=== PATIENT | female | born 2005 | race Two or more races ===

== ENCOUNTER 2024-01-11 08:22 | Emergency (ER) | payer OTHER ==
[~2024-01-11] VITALS: Ht 157.5 cm; Wt 72.7 kg
[2024-01-11 08:25] VITALS: TEMP 98.5
[2024-01-11 08:58] LABS: COVID AG,FIA SOURCE NASAL SWAB
[2024-01-11 09:17] LABS: SARS-COV2 (COVID) ANTIGEN,FIA Negative (Negative)
[2024-01-11 09:18] LABS: INFLUENZA TYPE A NEGATIVE FOR TYPE A (NEGATIVE); INFLUENZA TYPE B NEGATIVE FOR TYPE B (NEGATIVE)
[2024-01-11] MEDS: OXYMETAZOLINE HCL 0.05% 15 ML NASAL SPRAY NASAL ONE (12:59)
[2024-01-11 13:11] VITALS: BP 126/67; PULSE 90; RESP 18
== END 2024-01-11 13:47 | disposition home or self-care (01) ==
LOC: EMS 08:22
DX: J06.9 Acute upper respiratory infection, unspecified (principal); J40 Bronchitis, not specified as acute or chronic; Z20.822 Contact with and (suspected) exposure to COVID-19
CPT/HCPCS: 71045; 87804; 99284

== ENCOUNTER 2024-07-31 12:53 | Emergency (ER) | payer OTHER ==
[~2024-07-31] VITALS: Ht 162.6 cm; Wt 77.3 kg
[2024-07-31 13:01] VITALS: TEMP 98.9
[2024-07-31] MEDS ORDERED: CYCL10TA16 PO (13:01)
[2024-07-31] MEDS ORDERED: DULO20CA71 PO (13:01)
[2024-07-31] MEDS ORDERED: HYDR-4527 PO (13:01)
[2024-07-31 14:24] VITALS: BP 119/78; PULSE 86; RESP 18; O2SAT 99
[2024-07-31 14:59] LABS: BASOPHILS % (AUTO) 0.4 % (0.0-2.0); EOSINOPHILS % (AUTO) 2.3 % (1.0-6.0); HEMATOCRIT 40.8 % (36-46); HEMOGLOBIN 13.8 g/dL (12.0-16.0); LYMPHOCYTES # (AUTO) 2.3 K/uL (1.0-4.8); LYMPHOCYTES % (AUTO) 21.2 % (22.0-44.0); MEAN CORPUSCULAR HEMOGLOBIN 29.8 pg (26.0-34.0); MEAN CORPUSCULAR VOLUME 88 fL (80-100); MONOCYTES # (AUTO) 0.4 K/uL (0.1-1.0); MONOCYTES % (AUTO) 4.1 % (2.0-9.0); NEUTROPHILS # (AUTO) 7.8 K/uL (1.8-7.7); PLATELET COUNT (AUTO) 282 K/uL (150-450); RED BLOOD CELL COUNT(AUTO) 4.64 MIL/uL (4.00-5.20); RED CELL DISTRIBUTION WIDTH 13.5 % (11.5-14.5); WHITE BLOOD COUNT (AUTO) 10.9 K/uL (4.5-11.0)
[2024-07-31 15:15] LABS: APPEARANCE,URINE CLEAR (CLEAR); BILIRUBIN,URINE NEGATIVE (NEGATIVE); COLOR,URINE COLORLESS (YELLOW); GLUCOSE, URINE (UA) NEGATIVE (NEGATIVE); KETONES,URINE NEGATIVE (NEGATIVE); LEUKOCYTE ESTERASE ,URINE NEGATIVE (NEGATIVE); NITRATE,URINE NEGATIVE (NEGATIVE); OCCULT BLOOD,URINE MODERATE (NEGATIVE); PROTEIN,URINE NEGATIVE (NEGATIVE); SPECIFIC GRAVITIY, URINE 1.005 (1.003-1.030); UROBILINOGEN,URINE <=1.0 mg/dL (<=1.0)
[2024-07-31 15:17] LABS: ANION GAP 4 mmol/L (8-16); CALCIUM, TOTAL 9.1 mg/dL (8.8-10.5); CARBON DIOXIDE 31 mmol/L (22-29); CHLORIDE 105 mmol/L (98-107); CREATININE 0.75 mg/dL (0.60-1.30); GLOMERULAR FILTR. RATE CALC > 60 mL/min (>60); GLUCOSE,RANDOM 91 mg/dL (70-110); POTASSIUM 4.8 mmol/L (3.5-5.1); SODIUM SERUM 140 mmol/L (136-145); UREA NITROGEN, BLOOD 9 mg/dL (7-18)
[2024-07-31 15:25] LABS: BACTERIA,URINE None Seen /HPF (None Seen); RBC,URINE 0-2 /HPF (0-2); SQUAMOUS EPITHELIAL CELL,UR Few /LPF (None Seen); WBC,URINE None Seen /HPF (0-5)
[2024-07-31 15:28] LABS: HCG,QUANTITATIVE < 1 mIU/mL (0-6)
[2024-07-31] MEDS: IBUPROFEN 600 MG TABLET PO ONE (15:54)
== END 2024-07-31 16:31 | disposition home or self-care (01) ==
LOC: EMS 12:53
DX: R10.2 Pelvic and perineal pain (principal); Z79.899 Other long term (current) drug therapy
CPT/HCPCS: 76856; 80048; 81001; 84702; 85025; 99284